=== PATIENT | female | born 1955 | race Caucasian/White ===

== ENCOUNTER 2016-11-21 13:39 | Emergency (ER) | payer OTHER ==
[~2016-11-21] VITALS: Ht 167.6 cm; Wt 74.8 kg
[2016-11-21 13:41] VITALS: BP 155/80
[2016-11-21] MEDS ORDERED: HYDROCODONE-AP1 EAC6 PO (14:18)
== END 2016-11-21 14:23 | disposition home or self-care (01) ==
LOC: ER 13:39
DX: S42.401A Unspecified fracture of lower end of right humerus, initial encounter for closed fracture (principal); W10.8XXA Fall (on) (from) other stairs and steps, initial encounter; Y93.89 Activity, other specified; Y92.89 Other specified places as the place of occurrence of the external cause; Y99.8 Other external cause status